=== PATIENT | female | born 1980 | race Caucasian/White ===

== ENCOUNTER → 2018-01-02 14:38 | Outpatient (CLI) | payer OTHER, SELFPAY ==
[2018-01-09 14:10] LABS: HPV Reflexed? NOT INDICATED
== END ==
PROVIDERS: Visit Provider Obstetrics & Gynecology
DX: Z12.4 Encounter for screening for malignant neoplasm of cervix (principal)
CPT/HCPCS: 88175; G0145

== ENCOUNTER → 2019-02-25 13:58 | Outpatient (CLI) | payer OTHER, SELFPAY | PROVIDERS: Visit Provider Obstetrics & Gynecology | DX: Z12.4 Encounter for screening for malignant neoplasm of cervix (principal) ==

== ENCOUNTER → 2020-07-20 | Outpatient (CLI) | payer OTHER, SELFPAY ==
[2013-06-24 07:38] VITALS: BMI 28.3
[2020-07-25 09:56] LABS: HPV Reflexed? NOT INDICATED
== END | disposition home or self-care (01) ==
LOC: LABSPEC 13:07
PROVIDERS: Visit Provider Student in an Organized Health Care Education/Training Program
DX: Z12.4 Encounter for screening for malignant neoplasm of cervix (principal)
CPT/HCPCS: 88175; G0145

== ENCOUNTER → 2023-02-01 | Outpatient (CLI) | payer OTHER, SELFPAY ==
[2023-02-03 22:07] LABS: HPV APTIMA, High Risk Negative (Negative)
== END | disposition home or self-care (01) ==
LOC: LABSPEC 10:01
PROVIDERS: Visit Provider Student in an Organized Health Care Education/Training Program
DX: Z12.4 Encounter for screening for malignant neoplasm of cervix (principal)
CPT/HCPCS: 87624; 88175; G0145

== ENCOUNTER → 2023-07-04 | Outpatient (CLI) | payer OTHER, SELFPAY | END | disposition home or self-care (01) | LOC: LABSPEC 13:34 | PROVIDERS: Referring Provider Dermatology; Visit Provider Dermatology | DX: L71.0 Perioral dermatitis (principal) | CPT/HCPCS: 87070; 87186; 87205 ==